=== PATIENT | female | born 1945 | race Caucasian/White ===

== ENCOUNTER 2020-11-03 17:14 | Outpatient (CLI) | payer MEDICARE | END 2020-11-03 17:15 | disposition home or self-care (01) | LOC: COV 17:14 | PROVIDERS: ATTEND Family Medicine | DX: U07.1 COVID-19 (principal) ==

== ENCOUNTER 2023-11-08 10:46 | Emergency (ER) | payer MEDICARE ==
--- NOTE | 2023-11-08 13:04 | XRAY Report ---
PROCEDURE: Knee 4+V RT INDICATIONS: Trauma TECHNIQUE: 3 views of the knee was obtained. COMPARISON: None FINDINGS: Bones: No fractures or dislocations. No suspicious bony lesions. Soft tissues: No knee joint effusion. No suspicious soft tissue calcifications or masses. Atheroscl erotic vascular calcification IMPRESSION: Unremarkable knee radiographs Reviewed by: Oswaldo Huertas MD on 11/08/2023 12:03 PM [facility] Approved by: Oswaldo Huertas MD on 11/08/2023 12:03 PM [facility] Station ID: [id number]
--- NOTE | 2023-11-08 13:10 | ED Physician Documentation ---
PD HPI LOWER EXT INJURY - Stated complaint Stated Complaint: R KNEE PX - Chief complaint Chief Complaint: Ext Problem - History obtained from History obtained from: Patient - Additional information Additional information: 78-year-old woman presents for the evaluation of right knee pain. She think she probably overdid it by weed whacking in the garden about a week ago and then starting last night he she has had more significant stabbing pain to the medial right knee. There is no specific injury. PD PAST MEDICAL HISTORY - Past Medical History Past Medical History: Yes Respiratory: Asthma - Past Surgical History Past Surgical History: Yes /[employer]GR[employer]: Hysterectomy - Present Medications Home Medications: Ambulatory Orders Medication Instructions Recorded Confirmed No Known Home Medications 08/04/15 08/04/15 - Allergies Allergies/Adverse Reactions: Allergies Allergy/AdvReac Type Severity Reaction Status Date / Time No Known Drug Allergies Allergy Verified 11/08/23 11:21 - Social History Does the pt smoke?: No Smoking Status: Never smoker Does the pt drink ETOH?: No Does the pt have substance abuse?: No - Immunizations Immunizations are current?: No PD ED PE NORMAL - Vitals Vital signs reviewed: Yes - General General: Alert and oriented X 3, No acute distress - Extremities Extremities: Other (The right knee is visibly normal without effusion. No warmth or redness. Painless passive range of motion. Ligamentous testing is intact with negative grind testing.) Results - Vitals Vitals: Vital Signs - 24 hr 11/08/23 11:22 Temperature 36.7 C Heart Rate 83 Respiratory 16 Rate Blood Pressure 205/63 H O2 Saturation 98 Oxygen O2 Source Room air - Rads (name of study) 4 view x-ray of the right knee was negative. Relevant Findings:: Final report received, EMP independent interpretation of test PD Medical Decision Making - ED course ED course: She presents for the evaluation of knee pain. Clinically there is no evidence of septic joint/infection, DVT, effusion, or any more serious etiology. Departure - Departure Disposition: 01 Home, Self Care Clinical Impression: Knee pain, right Qualifiers: Chronicity: acute Qualified Code(s): M25.561 - Pain in right knee Condition: Good Record reviewed to determine appropriate education?: Yes Instructions: ED Knee Pain [facility] Follow-Up: Orthopedic Care [Provider Group] Comments: As discussed, I think you probably have inflammation of the knee due to some arthritis and overuse. Baby at and you can continue naproxen twice a day for the inflammation. Follow-up with orthopedic clinic in a week if not improved. Return for new or worsening symptoms.
[2023-11-08 13:53] VITALS: BP 150/60; O2SAT 100
== END 2023-11-08 13:47 | disposition home or self-care (01) ==
LOC: ED 10:46
DX: M25.561 Pain in right knee (principal)
CPT/HCPCS: 99283